=== PATIENT | male | born 1950 | race Caucasian/White ===

== ENCOUNTER 2017-07-11 11:35 | Observation (INO) | payer MEDICARE, OTHER ==
[~2017-07-11] VITALS: Ht 167.6 cm; Wt 90.0 kg
[2017-07-11] VITALS (9 sets, daily range): BP systolic 118–162; BP diastolic 66–85; PULSE 57–81; RESP 16–20; TEMP 97.5–98.7; O2SAT 96–99
[~2017-07-11 11:35] MED LIST: ASPI81TA17 PO; DONE10TA14 OR; EZET10 PO; FENO1TAB76 OR; FISH1000 PO; FLUO10TA PO; GLUCTAB PO; LORTA5 PO; MELO15TA2 PO; NEUR400C PO; NOVO7030P2 SQ; PRIN5TAB PO; ROSU40 PO; TRAZ50TA4 PO
--- NOTE | 2017-07-11 11:41 | PD ---
Physical Exam Time Seen by Provider: 11:38 Narrative 67yo M c/o chest pain Tuesday and again today while doing yard work. Sharp, stabbing pain. Mid sternal. Denies SOB. Denies current chest pain. Dr. Begum, [employer] Line Technician told to come to ER for evaluation. Patient seen in triage. VS reviewed. Awaiting bed placement. Data Data Last Documented VS Vital Signs Date Time Temp Pulse Resp B/P Pulse Ox O2 Delivery O2 Flow Rate FiO2 07/11/17 11:36 98.7 81 18 158/77 98 Room Air MDM Supervised Visit with MARCIANO: Vianey Swanson Jul 11, 2017 11:41
[2017-07-11] MEDS ORDERED: SODIUM CHLORIDE 0.9% FLUSH 10 ML FLUSH IVF PRN (12:15)
[2017-07-11 12:32] LABS: AUTOMATED NEUTROPHIL # 4.8 TH/MM3 (1.8-7.7); BASOPHIL # 0.1 TH/MM3 (0-0.2); BASOPHIL % 0.8 % (0.0-2.0); EOSINOPHIL # 0.1 TH/MM3 (0-0.4); EOSINOPHIL % 1.7 % (0.0-4.0); HEMATOCRIT 45.9 % (39.0-51.0); HEMO FLAGS DIFF FINAL; LYMPH % 20.5 % (9.0-44.0); LYMPHOCYTE # 1.4 TH/MM3 (1.0-4.8); MEAN CORPUSCULAR HEMOGLOBIN 28.4 PG (27.0-34.0); PLATELET COUNT 192 TH/MM3 (150-450); RED BLOOD COUNT 5.34 MIL/MM3 (4.50-5.90); RED CELL DISTRIBUTION WIDTH 14.9 % (11.6-17.2); WHITE BLOOD COUNT 6.8 TH/MM3 (4.0-11.0)
--- NOTE | 2017-07-11 12:32 | PD ---
HPI Chief Complaint: Chest Pain Time Seen by Provider: 12:28 Travel History International Travel<30 days: No Contact w/Intl Traveler<30days: No Traveled to known affect area: No History of Present Illness HPI 67-year-old male that presents to the ED for evaluation of left-sided chest pain. Per patient he had an episode chest pain on Tuesday that happened while he was sitting watching TV. Per patient he was severe and sharp and lasted a few minutes and then it went away. Per patient he didn't think much of it and although his wanted him to come here he declined. Today he was doing his lawn and he developed the similar pain. Per patient he fell sharp and shortness of breath. She still didn't work he was doing and the pain seemed to go away. Per patient he try to go see his c engineer Dr. Gonzalez who was not in the office today and the staff recommended that he comes here to get evaluated and have Dr. Joseph evaluated him as he is on-call for the group. He states that the pain is gone and he has not had any pain since. Per patient he took an aspirin today. He is to take nitroglycerin in the past. He is never had stents but he was told at one point that he might need stents but he's been managed medically with minimal issues. Patient does have a history of high cholesterol, hypertension, diabetes. No other medical issues. Not chest pain or shortness of breath this time. No recent travel. No fevers chills or sweats. No nausea or vomiting. No cough or runny nose. PFSH Past Medical History Arthritis: Yes Asthma: No Autoimmune Disease: No Blood Disorders: No Anxiety: Yes Depression: Yes Heart Rhythm Problems: No Cancer: No Cardiac Catheterization: Yes (1999) Cardiovascular Problems: Yes (PALPITATIONS,ARTERIOSCLEROSIS) High Cholesterol: Yes Chemotherapy: No Chest Pain: Yes Congestive Heart Failure: No COPD: No Cerebrovascular Accident: Yes Coronary Artery Disease: Yes Diabetes: Yes (TYPE II) Patient Takes Glucophage: Yes (07-11-2017 am) Diminished Hearing: No Endocrine: No Gastrointestinal Disorders: Yes GERD: Yes Glaucoma: No Gout: Yes Genitourinary: Yes (KIDNEY STONES) Headaches: No Hepatitis: No Hiatal Hernia: No Hypertension: Yes Immune Disorder: No Kidney Stones: Yes Medical other: Yes (PEDAL NEUROPATHY , ABDOMINAL HERNIA, ARTHRITIS, ) Musculoskeletal: Yes (LEFT SHOULDER CHRONIC PAIN) Neurologic: Yes (neuropathy) Psychiatric: Yes (post traumtic stress disorder) Reproductive: No Respiratory: Yes (SLEEP APNEA/ NO C PAP) Immunizations Current: Yes ([id number]) Migraines: No Myocardial Infarction: No Radiation Therapy: No Renal Failure: No Seizures: No Sickle Cell Disease: No Sleep Apnea: Yes Thyroid Disease: No Ulcer: No Past Surgical History Abdominal Surgery: Yes (UMBILICAL HERNIA REPAIR) AICD: No Appendectomy: No Arteriovenous Shunt: No Cardiac Surgery: No Cholecystectomy: No Ear Surgery: No Endocrine Surgery: No Eye Surgery: No Genitourinary Surgery: Yes (kidney stones removed) Gynecologic Surgery: No Insulin Pump: No Joint Replacement: No Oral Surgery: No Pacemaker: No Thoracic Surgery: No Social History Alcohol Use: No Tobacco Use: No Substance Use: No Allergies-Medications (Allergen,Severity, Reaction): Coded Allergies: Niacin (Verified Allergy, Mild, RASH, 07/11/17) Reported Meds & Prescriptions Reported Meds & Active Scripts Active Mobic (Meloxicam) 15 Mg Tab 15 Mg PO DAILY Lortab 5/325 Tab (Hydrocodone-Acetaminophen) 1 Tab Tab 1-2 Tab PO Q4-6HPRN Reported Tricor (Fenofibrate) 48 Mg Tab 48 Mg OR DAILY Zetia (Ezetimibe) 10 Mg Tab 10 Mg PO DAILY Novolin 70/30 (Insulin Human Isoph/Insulin Regular) 100 Units/Ml Inj 35 Units SQ DAILY Trazodone Hcl (Trazodone HCl) 50 Mg Tab 50 Mg PO HS Fluoxetine Hcl (Fluoxetine HCl) 10 Mg Tab 10 Mg PO DAILY Fish Oil 1,000 Mg Cap 1,000 Mg PO BID Donepezil Hcl (Donepezil Hydrochloride) 10 Mg Tab 10 Mg OR DAILY Aspirin EC Low Dose (Aspirin) 81 Mg Tab 81 Mg PO DAILY Gabapentin 400 Mg Cap 1,200 Mg PO BID Crestor (Rosuvastatin Calcium) 40 Mg Tab 40 Mg PO HS Novolin 70/30 (Insulin Human Isoph/Insulin Regular) 100 Units/Ml Inj 25 Units SQ HS Glucophage (Metformin HCl) 500 Mg Tab 500 Mg PO BIDAC Prinivil (Lisinopril) 5 Mg Tab 5 Mg PO BID Review of Systems Except as stated in HPI: all other systems reviewed are Neg Physical Exam Narrative GENERAL: SKIN: Warm and dry. HEAD: Atraumatic. Normocephalic. EYES: Pupils equal and round. No scleral icterus. No injection or drainage. ENT: No nasal bleeding or discharge. Mucous membranes pink and moist. Tongue is midline. No uvula deviation. NECK: Trachea midline. No JVD. CARDIOVASCULAR: Regular rate and rhythm. No murmurs, S3, S4. RESPIRATORY: No accessory muscle use. Clear to auscultation. Breath sounds equal bilaterally. GASTROINTESTINAL: Abdomen soft, non-tender, nondistended. Hepatic and splenic margins not palpable. MUSCULOSKELETAL: Extremities without clubbing, cyanosis, or edema. No obvious deformities. Full range of motion of the upper and lower extremities bilaterally. 2+ pulses bilaterally. NEUROLOGICAL: Awake and alert. No obvious cranial nerve deficits. Motor grossly within normal limits. Five out of 5 muscle strength in the arms and legs. Normal speech. PSYCHIATRIC: Appropriate mood and affect; insight and judgment normal. Data Data Last Documented VS Vital Signs Date Time Temp Pulse Resp B/P Pulse Ox O2 Delivery O2 Flow Rate FiO2 07/11/17 12:19 77 158/85 156/70 07/11/17 12:18 95 Room Air 07/11/17 11:36 98.7 18 Orders Electrocardiogram (07/11/17 ) Electrocardiogram (07/11/17 12:14) Basic Metabolic Panel (Bmp) (07/11/17 12:14) Ckmb (Isoenzyme) Profile (07/11/17 12:14) Complete Blood Count With Diff (07/11/17 12:14) Magnesium (Mg) (07/11/17 12:14) Prothrombin Time / Inr (Pt) (07/11/17 12:14) Act Partial Throm Time (Ptt) (07/11/17 12:14) Troponin I (07/11/17 12:14) Lipase (07/11/17 12:14) Chest, Single Ap (07/11/17 12:14) Ecg Monitoring (07/11/17 12:14) Bilateral Bp Monitoring (07/11/17 12:14) Iv Access Insert/Monitor (07/11/17 12:14) Oximetry (07/11/17 12:14) Oxygen Administration (07/11/17 12:14) Sodium Chloride 0.9% Flush (Ns Flush) (07/11/17 12:15) Admit Order (Ed Use Only) (07/11/17 13:39) Labs Laboratory Tests Test 07/11/17 12:18 White Blood Count 6.8 TH/MM3 Red Blood Count 5.34 MIL/MM3 Hemoglobin 15.2 GM/DL Hematocrit 45.9 % Mean Corpuscular Volume 86.0 FL Mean Corpuscular Hemoglobin 28.4 PG Mean Corpuscular Hemoglobin 33.0 % Concent Red Cell Distribution Width 14.9 % Platelet Count 192 TH/MM3 Mean Platelet Volume 8.2 FL Neutrophils (%) (Auto) 70.0 % Lymphocytes (%) (Auto) 20.5 % Monocytes (%) (Auto) 7.0 % Eosinophils (%) (Auto) 1.7 % Basophils (%) (Auto) 0.8 % Neutrophils # (Auto) 4.8 TH/MM3 Lymphocytes # (Auto) 1.4 TH/MM3 Monocytes # (Auto) 0.5 TH/MM3 Eosinophils # (Auto) 0.1 TH/MM3 Basophils # (Auto) 0.1 TH/MM3 CBC Comment DIFF FINAL Differential Comment Prothrombin Time 10.5 SEC Prothromb Time International 1.0 RATIO Ratio Activated Partial 25.4 SEC Thromboplast Time Sodium Level 140 MEQ/L Potassium Level 4.2 MEQ/L Chloride Level 110 MEQ/L Carbon Dioxide Level 23.9 MEQ/L Anion Gap 6 MEQ/L Blood Urea Nitrogen 27 MG/DL Creatinine 1.01 MG/DL Estimat Glomerular Filtration 74 ML/MIN Rate Random Glucose 116 MG/DL Calcium Level 8.4 MG/DL Magnesium Level 1.8 MG/DL Total Creatine Kinase 59 U/L Troponin I LESS THAN 0.02 NG/ML Lipase 636 U/L MDM Medical Decision Making Medical Screen Exam Complete: Yes Emergency Medical Condition: Yes Medical Record Reviewed: Yes Interpretation(s) EKG shows sinus rhythm with no sign of acute ischemia or arrhythmia. Read by me and attending. CBC & BMP Diagram 07/11/17 12:18 Lipase slightly elevated at 600 Troponin and CK-MB negative. Last Impressions Chest X-Ray 07/11/17 1214 Signed Impressions: Service Date/Time: Tuesday, July 11, 2017 12:32 - CONCLUSION: No acute cardiopulmonary abnormality is identified. Steve Pepper MD Differential Diagnosis Chest pain versus a typical chest pain versus angina versus ACS Narrative Course 67-year-old male that presents to the ED for evaluation of chest pain. Patient was properly examined and was found to have signs and symptoms consistent with chest pain. Concern for ACS is patient has multiple risk factors. Labs and imaging showed no sign of acute disease other than slightly elevated lipase. Lipase is less than double the normal. Patient's abdomen is benign. This time I believe that this is not pancreatitis. I do recommend that patient gets further workup for the heart and likely stress test disease has not had one in 2 years and he does have significant comorbidities. I spoke with my attending Dr. Hester in length about this and she agrees with plan. Patient was admitted to the chest pain center. Procedures EKG Prior to Arrival: No Diagnosis Primary Impression: Chest pain in adult Admitting Information Admitting Physician Requests: Observation Elie Gallardo Jul 11, 2017 12:32
[2017-07-11 12:39] LABS: APTT (PATIENT) 25.4 SEC (24.3-30.1); PROTHROMBIN TIME - PATIENT 10.5 SEC (9.8-11.6)
[2017-07-11 12:47] LABS: ANION GAP 6 MEQ/L (5-15); BICARBONATE 23.9 MEQ/L (21.0-32.0); BLOOD UREA NITROGEN 27 MG/DL (7-18); CHLORIDE 110 MEQ/L (98-107); GLOMERULAR FILTRATION RATE 74 ML/MIN (>89); MAGNESIUM 1.8 MG/DL (1.5-2.5); POTASSIUM 4.2 MEQ/L (3.5-5.1); SODIUM (NA) 140 MEQ/L (136-145)
[2017-07-11 13:04] LABS: CREATINE KINASE 59 U/L (39-308)
--- NOTE | 2017-07-11 13:19 | RADRPT ---
EXAM DATE/TIME: 07/11/2017 12:32 [facility] COMPARISON: No previous studies available for comparison. INDICATIONS : Chest pain. MEDICAL HISTORY : None. SURGICAL HISTORY : None. ENCOUNTER: Initial ACUITY: 2 days PAIN SCORE: 8/10 LOCATION: Left upper chest FINDINGS: Portable AP view of the chest demonstrates a normal-sized cardiac silhouette. No effusion, consolidat ion, or pneumothorax is visualized. The bones and soft tissues demonstrate no acute abnormality. Ther e are degenerative changes of the thoracic spine. CONCLUSION: No acute cardiopulmonary abnormality is identified. Steve Pepper MD on July 11, 2017 at 13:17 Board Certified Radiologist. This report was verified electronically.
[2017-07-11] MEDS ORDERED: ONDANSETRON HCL 4 MG/2 ML VIAL IV PRN (14:15)
[2017-07-11] MEDS ORDERED: NITROGLYCERIN 0.4 MG SL 25 TABS/BTL SL PRN (14:15)
[2017-07-11] MEDS ORDERED: ACETAMINOPHEN 500 MG CPLT PO PRN (14:15)
--- NOTE | 2017-07-11 15:01 | HHI.HP ---
HPI Primary Care Physician [facility] Chief Complaint Chest pain History of Present Illness 67-year-old male with history of hypertension tension and diabetes presents to emergency room for further evaluation of chest pain. Onset this morning at 10: 15 AM while mowing. Location substernal. Characteristic of pounding in the chest. Denied any pain or pressure. No associated symptoms of nausea, vomiting , shortness of breath, or diaphoresis. Duration approximately 7 minutes. After chest pounding episode he describes being exhausted for 30 minutes. No known precipitating or relieving factors. Patient's manager respiratory care is Dr. Brock , he drove himself to the office in hopes of being seen today. Office advised him to go to ER for further evaluation. Review of Systems General: No fatigue,weakness, fever, chills, or recent illness. Has been in his general state of health. HEENT: No COYNE, no vision changes, no nasal congestion or drainage, no dysphasia CV: As stated above. No current chest pain, pressure, or palpitations. History of palpitations and has been told palpations are anxiety related by his manager respiratory care. RESP: No SOB, cough, sputum production, or recent URI. GI: No nausea, vomiting, bowel changes, diarrhea, constipation, pain, distention , melena, or blood in the stool. Generally has a poor appetite, reporting his PCP is aware of poor appetite and #30 weight loss in the past year. : No dysuria, urgency, or frequency EXT: Bilateral lower extremities diabetic neuropathy. No lower leg edema MS: No discomfort or change in ROM NEURO: Reports change in memory taking Aricept as prescribed. No dizziness, LOC , or motor/sensory deficits. Occasionally experience difficulty with balance and uses a cane as needed. PSYCH: History of PTSD, stable on current medication regimen. Past Family Social History Allergies: Coded Allergies: Niacin (Verified Allergy, Mild, RASH, 07/11/17) Past Medical History Diabetes, hypertension, PTSD, neuropathy, arthritis, palpitations, hyperlipidemia, kidney stones, sleep apnea Past Surgical History Umbilical hernia repair Reported Medications Active Mobic (Meloxicam) 15 Mg Tab 15 Mg PO DAILY Tricor (Fenofibrate) 48 Mg Tab 48 Mg OR DAILY Zetia (Ezetimibe) 10 Mg Tab 10 Mg PO DAILY Novolin 70/30 (Insulin Human Isoph/Insulin Regular) 100 Units/Ml Inj 35 Units SQ DAILY Trazodone Hcl (Trazodone HCl) 50 Mg Tab 50 Mg PO HS Fluoxetine Hcl (Fluoxetine HCl) 10 Mg Tab 10 Mg PO DAILY Donepezil Hcl (Donepezil Hydrochloride) 10 Mg Tab 10 Mg OR DAILY Aspirin EC Low Dose (Aspirin) 81 Mg Tab 81 Mg PO DAILY Gabapentin 400 Mg Cap 1,200 Mg PO PRN Crestor (Rosuvastatin Calcium) 40 Mg Tab 40 Mg PO HS Novolin 70/30 (Insulin Human Isoph/Insulin Regular) 100 Units/Ml Inj 25 Units SQ HS Glucophage (Metformin HCl) 500 Mg Tab 500 Mg PO BIDAC Prinivil (Lisinopril) 5 Mg Tab 5 Mg PO BID Active Ordered Medications Current Medications Medications (Trade) Dose Ordered Sig/Tucker Route Start Time Stop Time Status Last Admin (NS Flush) 2 ml UNSCH PRN IVF 07/11/17 12:15 (NS Flush) 2 ml BID IV FLUSH 07/11/17 21:00 (Tylenol) 500 mg Q4H PRN PO 07/11/17 14:15 (Zofran Inj) 4 mg Q6H PRN IV 07/11/17 14:15 (Nitrostat Sl) 0.4 mg Q5M PRN SL 07/11/17 14:15 (Aspirin) 325 mg DAILY PO 07/12/17 09:00 Family History Noncontributory for early onset cardiovascular disease. Father open heart surgery in late 50s. Social History Known hypertension, diabetes, or hyperlipidemia. Quit smoking 35 years ago. Denies any alcohol or illegal drug use. Endorses an active lifestyle. Ambulates around his neighborhood 3 times weekly , continues to garden daily, and mow his own lawn. Past Cardiac Testing 09/29/2007 Cardiac Catheterization (Dr. Sharon Brock) Conclusions: !. Mild subintimal irregularity with otherwise unremarkable coronary arteries. 2. Normal systolic and diastolic function. 3. Possible very late minimal filling of an occluded diagonal vessel. I believe the coronary arteries are normal. No recent cardiac testing. Physical Exam Vital Signs Vital Signs Date Time Temp Pulse Resp B/P Pulse Ox O2 Delivery O2 Flow Rate FiO2 07/11/17 14:34 69 18 141/81 99 Room Air 07/11/17 12:19 77 158/85 156/70 07/11/17 12:18 95 Room Air 07/11/17 12:12 77 96 Room Air 07/11/17 11:36 98.7 81 18 158/77 98 Room Air Physical Exam GENERAL: Alert WN, WD, NAD, pleasant, male HEAD: NC, AT EYES: Sclera clear, conjunctiva without injection, pupils equal and round ENT: Mucous membranes pink and moist CV: RRR, 2/6 systolic murmur, no rub, no gallop, no JVD, S1-S2 no S3-S4. RESP: Clear lungs throughout bilateral, no crackles, wheeze, rhonchi, symmetrical chest rise, nonlabored, able to speak in full sentences ABD: RUQ tender upon palpation, negative Carlton's sign. Soft, ND, no masses, positive bowel tones EXT: Pulses +24, trace dependent edema MS: Normal tone 4 extremities, nontender, no obvious deformities, full range of motion NEURO: CN II through CN XII grossly intact, motor strength 5/5 PSYCH: A+O 3, pleasant affect, appropriate speech, appropriate mood and affect , insight and judgment SKIN: Normal turgor, normal texture, no lesions, no rashes, brisk cap refill Laboratory Laboratory Tests Test 07/11/17 12:18 White Blood Count 6.8 Red Blood Count 5.34 Hemoglobin 15.2 Hematocrit 45.9 Mean Corpuscular Volume 86.0 Mean Corpuscular Hemoglobin 28.4 Mean Corpuscular Hemoglobin 33.0 Concent Red Cell Distribution Width 14.9 Platelet Count 192 Mean Platelet Volume 8.2 Neutrophils (%) (Auto) 70.0 Lymphocytes (%) (Auto) 20.5 Monocytes (%) (Auto) 7.0 Eosinophils (%) (Auto) 1.7 Basophils (%) (Auto) 0.8 Neutrophils # (Auto) 4.8 Lymphocytes # (Auto) 1.4 Monocytes # (Auto) 0.5 Eosinophils # (Auto) 0.1 Basophils # (Auto) 0.1 CBC Comment DIFF FINAL Differential Comment Prothrombin Time 10.5 Prothromb Time International 1.0 Ratio Activated Partial 25.4 Thromboplast Time Sodium Level 140 Potassium Level 4.2 Chloride Level 110 Carbon Dioxide Level 23.9 Anion Gap 6 Blood Urea Nitrogen 27 Creatinine 1.01 Estimat Glomerular Filtration 74 Rate Random Glucose 116 Calcium Level 8.4 Magnesium Level 1.8 Total Creatine Kinase 59 Troponin I LESS THAN 0.02 Lipase 636 Result Diagram: 07/11/17 1218 07/11/17 1218 Imaging Last Impressions Chest X-Ray 07/11/17 1214 Signed Impressions: Service Date/Time: Tuesday, July 11, 2017 12:32 - CONCLUSION: No acute cardiopulmonary abnormality is identified. Steve Pepper MD Course EKG NSR, no st changes, nonspecific T wave change Assessment and Plan Assessment and Plan #1 Atypical chest pain-admitted to chest pain center. Rule out with 3 sets of cardiac enzymes, EKG's, and monitor overnight. Seen and evaluated by Dr. Juan Flowers. Plan to proceed with Lexiscan in am if he rules out and CT abd/pelvis is unremarkable. This is been discussed with patient and daughter is at bedside and they are agreeable plan of care.. #2 Rule out pancreatitis-elevated lipase and tender RUQ, CT abdomen/pelvis this evening. #3 Diabetes-SSI moderate dose, hold patient personal insulins at this time for NPO status after midnight #4 Hypertension-continue lisinopril, clonidine 0.1mg Q6H prn systolic greater than 180 or diastolic greater than 95 All other home medications reordered as appropriate. Janet Dobbins Jul 11, 2017 15:01
[2017-07-11] MEDS ORDERED: DIATRIZOATE MEGLUM/DIATRIZOATE SOD 9 ML CUP PO ONE (16:00)
[2017-07-11] MEDS ORDERED: cloNIDine HCL 0.1 MG TAB PO PRN (16:45)
[2017-07-11] MEDS ORDERED: ASPI81TA11 PO (16:54)
[2017-07-11] MEDS ORDERED: TRAZ50TA12 PO (16:54)
[2017-07-11] MEDS ORDERED: LISI-519 PO (16:54)
[2017-07-11] MEDS ORDERED: EZET1TAB8 PO (16:54)
[2017-07-11] MEDS ORDERED: ROSU40 PO (16:54)
[2017-07-11] MEDS ORDERED: NOVO7030P2 SQ ×2 (16:54)
[2017-07-11] MEDS ORDERED: GABA400C5 PO (16:54)
[2017-07-11] MEDS ORDERED: METF500T PO (16:54)
[2017-07-11] MEDS ORDERED: FLUO10TA PO (16:54)
[2017-07-11] MEDS ORDERED: FENO48TA PO (16:54)
[2017-07-11] MEDS ORDERED: DONE10TA7 PO (16:54)
[2017-07-11] MEDS ORDERED: MOBI15TA PO (16:54)
[2017-07-11] MEDS ORDERED: GABAPENTIN 400 MG CAP PO PRN (17:15)
[2017-07-11] MEDS ORDERED: DEXTROSE 50% IN WATER 50 ML VIAL(D50) IV PRN (17:15)
[2017-07-11] MEDS ORDERED: GLUCAGON 1 MG/ML VIAL OTHER PRN ×2 (17:15)
--- NOTE | 2017-07-11 17:37 | RADRPT ---
EXAM DATE/TIME: 07/11/2017 17:11 [facility] COMPARISON: No previous studies available for comparison. INDICATIONS : Upper abdominal pain, evaluate for pancreatitis. IV CONTRAST: 81 cc Omnipaque 350 (iohexol) IV ORAL CONTRAST: Prescribed oral contrast ingested. RADIATION DOSE: 14.59 CTDIvol (mGy) MEDICAL HISTORY : Renal calculi. cad, palpitations, arteriosclerosis, enlarged prostate, dm SURGICAL HISTORY : umbilical hernia repair ENCOUNTER: Initial ACUITY: 1 day PAIN SCALE: 5/10 LOCATION: abdomen TECHNIQUE: Volumetric scanning of the abdomen and pelvis was performed. Using automated exposure control and ad justment of the mA and/or kV according to patient size, radiation dose was kept as low as reasonably achievable to obtain optimal diagnostic quality images. DICOM format image data is available electro nically for review and comparison. FINDINGS: LOWER LUNGS: The visualized lower lungs are clear. LIVER: Homogeneous density without lesion. There is no dilation of the biliary tree. No calcified gallston es. SPLEEN: Normal size without lesion. PANCREAS: Within normal limits. No inflammatory changes present. KIDNEYS: Normal in size and shape. There is no mass, stone or hydronephrosis. There is an incidental 8 mm low -density lesion in the left mid kidney that is too small to characterize. ADRENAL GLANDS: Within normal limits. VASCULAR: There is no aortic aneurysm. There is moderate to severe atherosclerotic disease. BOWEL/MESENTERY: The stomach, small bowel, and colon demonstrate no acute abnormality. There is no free intraperitone al air or fluid. A small hiatal hernia is present. ABDOMINAL WALL: There is a fluid density collection measuring 18 mm likely in the anterior extraperitoneal space just superior to the umbilicus. RETROPERITONEUM: There is no lymphadenopathy. BLADDER: No wall thickening or mass. REPRODUCTIVE: Prostate gland is enlarged. INGUINAL: There is no lymphadenopathy. There is a fat containing right inguinal hernia.. MUSCULOSKELETAL: There degenerative changes of the lumbar spine with facet hypertrophy and likely spinal canal stenosi s in the inferior lumbar spine. CONCLUSION: 1. There are no imaging findings to indicate acute pancreatitis. The pancreas has a normal appearance . 2. Nonacute findings include small hiatal hernia, moderate to severe atherosclerotic disease, prostat omegaly, and fat containing right internal hernia. Steve Pepper MD on July 11, 2017 at 17:31 Board Certified Radiologist. This report was verified electronically.
[2017-07-11] MEDS ORDERED: IOHEXOL 350 MG/ML 10 ML VIAL (for RAD DIAG) IV ONE (17:46)
[2017-07-11 19:05] LABS: CREATINE KINASE 53 U/L (39-308)
[2017-07-11] MEDS ORDERED: INSULIN ASPART SUPPLEMENTAL SCALE SQ SCH (21:00)
[2017-07-11] MEDS ORDERED: traZODone HCL 50 MG TAB PO SCH (21:00)
[2017-07-11] MEDS ORDERED: ATORVASTATIN 80 MG TAB PO SCH (21:00)
[2017-07-11] MEDS: INSULIN ASPART SUPPLEMENTAL SCALE SQ SCH (21:00)
[2017-07-11] MEDS: SODIUM CHLORIDE 0.9% FLUSH 10 ML FLUSH IV FLUSH SCH (21:26)
[2017-07-11] MEDS: LISINOPRIL 5 MG TAB PO SCH (21:26)
[2017-07-12] VITALS (7 sets, daily range): BP systolic 118–162; BP diastolic 74–88; PULSE 62–70; RESP 17–18; TEMP 97.4–98.4; O2SAT 96–100
[2017-07-12] MEDS: INSULIN ASPART SUPPLEMENTAL SCALE SQ SCH ×2 (06:08→11:00)
[2017-07-12] MEDS ORDERED: ASPIRIN 325 MG TAB PO SCH (09:00)
[2017-07-12] MEDS ORDERED: FENOFIBRATE 48 MG TAB PO SCH (09:00)
[2017-07-12] MEDS ORDERED: FLUoxetine HCL 10 MG CAP PO SCH (09:00)
[2017-07-12] MEDS ORDERED: DONEPEZIL HCL 5 MG TAB PO SCH (09:00)
[2017-07-12] MEDS ORDERED: EZETIMIBE 10 MG TAB PO SCH (09:00)
[2017-07-12] MEDS ORDERED: REGADENOSON INJ 0.4 MG/5 ML SYR ONE (10:32)
[2017-07-12] MEDS: SODIUM CHLORIDE 0.9% FLUSH 10 ML FLUSH IV FLUSH SCH (11:26)
[2017-07-12] MEDS: LISINOPRIL 5 MG TAB PO SCH (11:27)
--- NOTE | 2017-07-12 11:30 | RADRPT ---
EXAM DATE/TIME: 07/12/2017 09:26 [facility] COMPARISON: No previous studies available for comparison. INDICATIONS : Left sided chest pain for one day. Angina. DOSE: 27.2 mCi Tc99m Myoview at stress. 8.7 mCi Tc99m Myoview at rest. 0.4 mg Lexiscan STRESS SYMPTOMS: heart racing and dyspnea. EJECTION FRACTION: 67% MEDICAL HISTORY : Diabetes mellitus type 2. Hypertension. SURGICAL HISTORY : Umbilical hernia repair. ENCOUNTER: Initial ACUITY: 1 day PAIN SCALE: 8/10 LOCATION: Left chest TECHNIQUE: The patient underwent pharmacologic stress with infusion of prescribed dose. Continuous ECG tracing was monitored during stress. Gated SPECT imaging was performed after stress and conventional SPECT i maging was performed at rest. The examination was performed on a SPECT/CT scanner, both attenuation and non-corrected datasets were reviewed. FINDINGS: DISTRIBUTION: The maximum perfused segment at stress is in the septal wall. PERFUSION STUDY: The pattern of perfusion at stress is within normal limits. GATED STUDY: There is intact wall motion and thickening without hypokinetic or dyskinetic segments. CONCLUSION: No findings to indicate stress-induced myocardial ischemia identified. RISK CATEGORY: Low (<1% Annual Mortality Rate) Vasu Whitney MD on July 12, 2017 at 11:11 Board Certified Radiologist. This report was verified electronically.
--- NOTE | 2017-07-12 11:45 | HHI.DCPOC ---
Discharge Care Plan Diagnosis: (1) Chest pain, atypical (2) Hypertension (3) Hyperlipidemia (4) DM (diabetes mellitus) Goals to Promote Your Health * To prevent worsening of your condition and complications * To maintain your health at the optimal level Directions to Meet Your Goals Take your medications as prescribed Follow your dietary instruction Follow activity as directed Keep your appointments as scheduled Take your immunizations and boosters as scheduled If your symptoms worsen call your PCP, if no PCP go to Urgent Care Center or Emergency Room Smoking is Dangerous to Your Health. Avoid second hand smoke Call the 24-hour hour crisis hotline for domestic abuse at Luc Gonzales Jul 12, 2017 11:45
--- NOTE | 2017-07-12 16:51 | EKG ---
Date Performed: 07/11/2017 Time Performed: 15:27:29 PTAGE: 67 years EKG: SINUS BRADYCARDIA NONSPECIFIC T-WAVE ABNORMALITY BORDERLINE ECG Since PREVIOUS TRACING , no significant change noted PREVIOUS TRACIN07/11/2017 11.47 DOCTOR: Gretchen Wu Interpretating Date/Time 07/12/2017 16:51:12
--- NOTE | 2017-07-12 16:52 | EKG ---
Date Performed: 07/11/2017 Time Performed: 18:38:05 PTAGE: 67 years EKG: Sinus rhythm NONSPECIFIC T-WAVE ABNORMALITY BORDERLINE ECG Since PREVIOUS TRACING , no significant change noted PREVIOUS TRACIN07/11/2017 15.27 DOCTOR: Gretchen Wu Interpretating Date/Time 07/12/2017 16:51:59
--- NOTE | 2017-07-12 16:54 | TR ---
Date Performed: 07/12/2017 Time Performed: 10:15:42 DOCTOR: Gretchen Wu DRUG LIST: CLINICAL HISTORY: REASON FOR TEST: REASON FOR ENDING: OBSERVATION: CONCLUSION: Lexiscan stress test was performed under standard four minute protocol. Radionuclid e was injected one minute prior to ending the test. No electrocardiographic abormalities were present to suggest ischemia. Nuclear imaging and interpretation are pending. COMMENTS:
--- NOTE | 2017-07-13 15:58 | EKG ---
Date Performed: 07/11/2017 Time Performed: 11:47:00 PTAGE: 67 years EKG: Sinus rhythm NONSPECIFIC T-WAVE ABNORMALITY BORDERLINE ECG PREVIOUS TRACING : 12/23/2011 06.56 Since previous tracing, no significant change noted DOCTOR: Juan Flowers Interpretating Date/Time 07/13/2017 15:55:33
== END 2017-07-12 12:33 | disposition home or self-care (01) ==
LOC: NEPE 11:35 → NEDH 13:43 → NEPFCDU 14:47
PROVIDERS: ADMIT Internal Medicine Cardiovascular Disease; ATTEND Internal Medicine Cardiovascular Disease
DX: R07.89 Other chest pain (principal); I25.10 Atherosclerotic heart disease of native coronary artery without angina pectoris; I10 Essential (primary) hypertension; R94.31 Abnormal electrocardiogram [ECG] [EKG]; E11.40 Type 2 diabetes mellitus with diabetic neuropathy, unspecified; E78.5 Hyperlipidemia, unspecified; E78.00 Pure hypercholesterolemia, unspecified; K21.9 Gastro-esophageal reflux disease without esophagitis; F43.10 Post-traumatic stress disorder, unspecified; G47.30 Sleep apnea, unspecified; M10.9 Gout, unspecified; Z86.73 Personal history of transient ischemic attack (TIA), and cerebral infarction without residual deficits; Z87.891 Personal history of nicotine dependence; Z87.442 Personal history of urinary calculi
CPT/HCPCS: 71010; 74177; 78452; 80048; 82550; 82948; 83690; 83735; 84484; 85025; 85610; 85730; 93005; 93017; 99285; A9502; G0378; J2785; Q9963; Q9967